=== PATIENT | female | born 1930 | race Caucasian/White ===

== ENCOUNTER 2017-07-18 11:07 | Inpatient (IN) ==
--- NOTE | 2017-07-18 11:34 | Emergency Department Note ---
Disposition Clinical Impression: Hypoxia Acute exacerbation of CHF (congestive heart failure) Qualifiers: Congestive heart failure type: unspecified congestive heart failure type Qualified Code(s): I50.9 - Heart failure, unspecified UTI (urinary tract infection) Qualifiers: Urinary tract infection type: site unspecified Hematuria presence: with hematuria Qualified Code(s): N39.0 - Urinary tract infection, site not specified ; R31.9 - Hematuria, unspecified; R31.9 - Hematuria, unspecified Disposition: Admitted As Inpatient Condition: Fair Time of Disposition: 15:03 SOB HPI - General Chief Complaint: ED Shortness of Breath/Dyspnea Stated Complaint: PROSPER Time Seen by Provider: 07/18/17 11:09 Nursing Notes Reviewed: Yes Vital Signs Reviewed: Yes - History of Present Illness Patient is an 87-year-old female who presents with acute finding of O2 sat of 70 % on room air just before starting cardiac rehabilitation exercises at cardiac rehabilitation. Patient was newly diagnosed CHF 2 months ago and his been having dyspnea on exertion since then. Patient states she is otherwise finding has no symptoms on review of symptoms. Patient denies tobacco use, illicit drug use, and has a occasional alcohol use. - Related Data Home Medications Medication Instructions Recorded Confirmed Aspirin [Lo-Dose Aspirin EC] 81 mg PO DAILY 06/19/17 07/18/17 Atorvastatin Calcium [Lipitor] 40 mg PO HS 06/19/17 07/18/17 Furosemide [Lasix] 40 mg PO DAILY 06/19/17 07/18/17 Glimepiride [Amaryl] 2 mg PO 0800 06/19/17 07/18/17 Methylphenidate HCl [Ritalin] 5 mg PO DAILY 06/19/17 07/18/17 Metoprolol Tartrate [Lopressor] 25 mg PO BID 06/19/17 07/18/17 Multivit-Min/FA/Lycopen/Lutein 1 tab PO DAILY 06/19/17 07/18/17 [Centrum Silver Tablet] SitaGLIPtin [Januvia] 100 mg PO DAILY 06/19/17 07/18/17 Zolpidem [Ambien] 5 mg PO HS PRN 06/19/17 07/18/17 Lactulose [Enulose] 15 - 45 ml PO DAILY 07/18/17 07/18/17 Lisinopril [Zestril] 20 mg PO DAILY 07/18/17 07/18/17 Spironolactone [Aldactone] 25 mg PO DAILY 07/18/17 07/18/17 Allergies Allergy/AdvReac Type Severity Reaction Status Date / Time No Known Allergies Allergy Verified 07/18/17 12:44 All systems ED: reviewed and negative except as stated. Review of Systems: As Per HPI Constitutional: Denies: fever, chills, weakness Eyes: Denies: eye pain, vision change ENT ED: Denies: throat pain, congestion Cardiovascular: Reports: dyspnea on exertion. Denies: chest pain, palpitations , orthopnea, syncope Respiratory: Reports: cough. Denies: dyspnea, wheezes Gastrointestinal: Denies: abdominal pain, nausea, vomiting, diarrhea, hematemesis, melena, hematochezia Genitourinary: Denies: urgency, dysuria, frequency, hematuria Musculoskeletal: Denies: back pain, neck pain Integumentary: Denies: rash Neurological: Denies: headache Psychiatric: Denies: anxiety Endocrine: Denies: fatigue Past Medical History - Past Medical History Medical history: Reports: arthritis, CHF, coronary artery disease, diabetes, hypertension, myocardial infarction, other - Social History Smoking Status: Never smoker Smokeless Tobacco Status: No Alcohol use: Reports: none Physical Exam Vital Signs Temperature 97.5 F L 07/18/17 11:09 Pulse Rate 56 07/18/17 11:09 Respiratory Rate 14 07/18/17 11:09 Blood Pressure 116/72 07/18/17 11:09 O2 Sat by Pulse Oximetry 98 07/18/17 11:09 Temperature 97.5 F L 07/18/17 11:09 Pulse Rate 56 07/18/17 11:09 Respiratory Rate 14 07/18/17 11:09 Blood Pressure 116/72 07/18/17 11:09 O2 Sat by Pulse Oximetry 98 07/18/17 11:09 Oxygen Delivery Oxygen Delivery Nasal Cannula 87-year-old female who is alert and oriented 3 and in no acute distress. Patient able to transfer herself from the EMS cot to her bed without issue. Patient is nontoxic appearing and otherwise looks well patient has no conversational dyspnea. Patient's vital signs show bradycardia at a rate of 56 which is a sinus bradycardia with a first-degree AV block on EKG. Patient's current on 2 L of O2 via nasal cannula with an O2 sat of 98%. - General Limitations: no limitations General appearance: alert, in no apparent distress - Head Head exam: atraumatic, normocephalic, normal inspection - Eye Eye exam: Present: normal appearance, PERRL, EOMI - ENT ENT exam: normal exam, normal oropharynx, mucous membranes moist - Neck Neck exam: Present: normal inspection, full ROM, trachea midline - Chest Chest inspection: Present: normal inspection, symmetric chest wall rise. Absent : tenderness - Respiratory Respiratory exam: Present: normal lung sounds bilaterally - Cardiovascular Cardiovascular exam: Present: regular rate, normal rhythm, normal heart sounds - Abdominal Exam Abdominal exam: Present: soft, Non-Tender. Absent: tenderness, distention, guarding, rebound, rigidity - Extremities Exam Extremities exam: Present: normal inspection, full ROM, normal capillary refill , other (Pulses equal or neural 4 extremities). Absent: tenderness, pedal edema - Back Exam Back exam: Present: normal inspection, full ROM. Absent: tenderness, CVA tenderness (R), CVA tenderness (L) - Neurological Exam Neurological exam: Present: alert, oriented X3 - Skin Skin exam: Present: warm, dry, intact, normal color Course Vital Signs Temperature 97.5 F L 07/18/17 11:09 Pulse Rate 56 07/18/17 11:09 Respiratory Rate 14 07/18/17 11:09 Blood Pressure 116/72 07/18/17 11:09 O2 Sat by Pulse Oximetry 98 07/18/17 11:09 Temperature 97.5 F L 07/18/17 11:35 Pulse Rate 63 07/18/17 13:38 Respiratory Rate 20 07/18/17 14:38 Blood Pressure 124/60 07/18/17 14:38 O2 Sat by Pulse Oximetry 100 07/18/17 13:38 Oxygen Delivery Oxygen Delivery Nasal Cannula Shortness of Breath/Dyspnea - [facility] Narrative Medical decision making narrative: Patient presents with symptoms consistent with acute CHF exacerbation. Patient currently has no chest pain and EKG shows first-degree AV block which is seen on previous EKG as well as a sinus bradycardia seen on the old EKG as well. Patient's O2 sat was concerning for possible PE and d-dimer was ordered. Which returned at 1500. Patient sent for VQ scan since her GFR and BUN/creatinine problematic for contrast. Patient's BNP came back elevated then prior with chest x-ray showing mild vascular congestion for CHF exacerbation. VQ scan read as states low probability of PE. Patient being admitted for CHF exacerbation has been given a dose of Lasix 40 mg IV since patient she is noncompliant on her home medications which may be expiratory for patient's CHF exacerbation. On reexamination patient still doing well no pain anywhere. Dr. Palomares the hospitalist as except the patient for admission at 1417 hrs. Patient's UA shows UTI. Patient's urinalysis results crossed over after admission and has not been started on therapy for her UTI. - Lab Data Lab results reviewed: Yes I reviewed the patient's lab results. Lab results narrative: Short CBC 07/18/17 Range/Units 11:50 WBC 6.8 (4.3-11.1) K/mcL Hgb 12.0 (11.5-15.4) g/dL Hct 39.3 (35.3-44.9) % Plt Count 134 L (140-400) K/mcL Neutrophils # 5.3 (1.6-8.9) K/mcL BMP 07/18/17 Range/Units 11:50 Sodium 139 (136-145) mEq/L Potassium 4.7 H (3.5-4.5) mEq/L Chloride 108 (98-109) mEq/L Carbon Dioxide 25 (19-29) mEq/L BUN 44 H (7-20) mg/dL Creatinine 1.53 H (0.57-1.11) mg/dL Glucose 194 H (70-99) mg/dL Calcium 9.2 (8.6-10.8) mg/dL Cardiac Enzymes 07/18/17 Range/Units 11:50 Troponin I 0.03 (0-0.03) ng/mL Urine 07/18/17 Range/Units 14:15 Urine Color Yellow (Yellow) Urine Clarity Slightly Cloudy A (Clear) Urine pH 6.0 (5.0-8.0) pH Units Ur Specific [place] 1.022 (1.010-1.025) Urine Protein 30 H (Neg-Trace) mg/dL Urine Glucose (UA) Normal (Normal) mg/dL Result diagrams: 07/18/17 11:50 07/18/17 11:50 Lab Results 07/18/17 07/18/17 07/18/17 Range/Units 11:50 11:50 11:50 WBC 6.8 (4.3-11.1) K/mcL RBC 4.39 (3.82-4.97) M/mcL Hgb 12.0 (11.5-15.4) g/dL Hct 39.3 (35.3-44.9) % MCV 89.5 (83.0-100.0) fL MCH 27.3 L (28.0-33.3) pg MCHC 30.5 L (31.6-35.5) g/dL RDW 18.0 H (11.5-14.5) % Plt Count 134 L (140-400) K/mcL MPV 12.4 (9.4-12.4) fL Immature Gran % 0.3 (0-4) % Seg Neutrophils % 77.8 % Lymphocytes % 11.2 % Monocytes % 9.1 % Eosinophils % 1.2 % Basophils % 0.4 % Neutrophils # 5.3 (1.6-8.9) K/mcL Lymphocytes # 0.8 (0.6-4.6) K/mcL Monocytes # 0.6 (0.0-1.3) K/mcL Eosinophils # 0.1 (0.0-0.6) K/mcL Basophils # 0.0 (0.0-0.2) K/mcL D-Dimer (0-500) ng/mLFEU Sodium 139 (136-145) mEq/L Potassium 4.7 H (3.5-4.5) mEq/L Chloride 108 (98-109) mEq/L Carbon Dioxide 25 (19-29) mEq/L BUN 44 H (7-20) mg/dL Creatinine 1.53 H (0.57-1.11) mg/dL Est GFR ( Amer) 39 L (> 60) Est GFR (Non-Af Amer) 32 L (> 60) BUN/Creatinine Ratio 29 H (6-26) Glucose 194 H (70-99) mg/dL Calculated Osmolality 304 H (280-300) Calcium 9.2 (8.6-10.8) mg/dL Troponin I 0.03 (0-0.03) ng/mL B-Natriuretic Peptide (0-100) pg/mL Urine Color (Yellow) Urine Clarity (Clear) Urine pH (5.0-8.0) pH Units Ur Specific [place] (1.010-1.025) Urine Protein (Neg-Trace) mg/dL Urine Glucose (UA) (Normal) mg/dL Urine Ketones (Negative) mg/dL Urine Blood (Negative) Urine Nitrite (Negative) Urine Bilirubin (Negative) Urine Urobilinogen (Normal) mg/dL Ur Leukocyte Esterase (Negative) Urine Microscopic RBC (0-3) per hpf Urine Microscopic WBC (0-3) per hpf Ur Squamous Epith Cells (None-Few) per lpf Urine Bacteria (None-Few) per hpf Hyaline Casts (None-Few) per lpf Ur Culture Indicated? (NO) 07/18/17 07/18/17 07/18/17 Range/Units 11:50 11:53 14:15 WBC (4.3-11.1) K/mcL RBC (3.82-4.97) M/mcL Hgb (11.5-15.4) g/dL Hct (35.3-44.9) % MCV (83.0-100.0) fL MCH (28.0-33.3) pg MCHC (31.6-35.5) g/dL RDW (11.5-14.5) % Plt Count (140-400) K/mcL MPV (9.4-12.4) fL Immature Gran % (0-4) % Seg Neutrophils % % Lymphocytes % % Monocytes % % Eosinophils % % Basophils % % Neutrophils # (1.6-8.9) K/mcL Lymphocytes # (0.6-4.6) K/mcL Monocytes # (0.0-1.3) K/mcL Eosinophils # (0.0-0.6) K/mcL Basophils # (0.0-0.2) K/mcL D-Dimer 1593 H (0-500) ng/mLFEU Sodium (136-145) mEq/L Potassium (3.5-4.5) mEq/L Chloride (98-109) mEq/L Carbon Dioxide (19-29) mEq/L BUN (7-20) mg/dL Creatinine (0.57-1.11) mg/dL Est GFR ( Amer) (> 60) Est GFR (Non-Af Amer) (> 60) BUN/Creatinine Ratio (6-26) Glucose (70-99) mg/dL Calculated Osmolality (280-300) Calcium (8.6-10.8) mg/dL Troponin I (0-0.03) ng/mL B-Natriuretic Peptide 4725 H (0-100) pg/mL Urine Color Yellow (Yellow) Urine Clarity Slightly Cloudy A (Clear) Urine pH 6.0 (5.0-8.0) pH Units Ur Specific [place] 1.022 (1.010-1.025) Urine Protein 30 H (Neg-Trace) mg/dL Urine Glucose (UA) Normal (Normal) mg/dL Urine Ketones Negative (Negative) mg/dL Urine Blood Negative (Negative) Urine Nitrite Positive A (Negative) Urine Bilirubin Negative (Negative) Urine Urobilinogen Normal (Normal) mg/dL Ur Leukocyte Esterase Negative (Negative) Urine Microscopic RBC 0-3 (0-3) per hpf Urine Microscopic WBC 3-5 H (0-3) per hpf Ur Squamous Epith Cells Many H (None-Few) per lpf Urine Bacteria Moderate H (None-Few) per hpf Hyaline Casts None Seen (None-Few) per lpf Ur Culture Indicated? YES A (NO) - Radiology Data Radiology results reviewed: Yes I reviewed the patient's radiology results. Chest X-Ray 07/18/17 11:29 IMPRESSION: Findings most compatible with mild congestive heart failure. D/ / Haroon Sands MD / Haroon Sands MD Interpreting Provider: Haroon Sands MD Pulmonary Perfusion Imaging 07/18/17 12:19 IMPRESSION: Low Probability for Pulmonary Embolus. D/ / Broderick Pearce MD / Broderick Pearce MD Interpreting Provider: Broderick Pearce MD - EKG Data EKG attestation: Yes I reviewed and interpreted this EKG. EKG results narrative: EKG taken 07/18/2017 1127 hrs. shows a sinus bradycardia first-degree AV block E on previous EKG taken 07/15/2011. Patient has no signs ischemia and no WPW no Brugada. Attestation Statement - Attestation Attestation: I, Ap Sr DO, examined this patient [id number] and my medical decision-making was reviewed with Dr. Guy Ortega, Resident Physician. I agree with the documented findings, disposition and treatment plan as described except to the extent set forth below. Please see my progress notes for details. 87-year-old female presents emergency room from cardiac rehabilitation by EMS. Patient was found to be hypoxic at 70% on room air when she arrived to cardiac rehabilitation today. She is currently followed by or nurse manager in [place]. Patient has been in all the hospital at that facility and has had several evaluations outpatient setting. She started on new medication within the last 2 weeks. Her vital signs and presentation are stable here and 2 L of oxygen. She does not use oxygen at home. Her physical exam shows a 87-year- old female who does appear to be in some mild respiratory distress. She does have some increased work of breathing. Her lungs are clear but she is using accessory muscles. Heart is regular and bradycardic. Abdomen soft nontender nondistended with no guarding or rigidity. She has +2 pitting edema to the knee bilateral lower extremity with palpable pulses in the DP and PT distributions that are symmetric bilaterally. There is no signs of discoloration to lower extremities. Upper extremities does have some cyanosis to the distal aspect of all the fingers on the upper extremities. The symmetric bilaterally. This is most likely secondary to her new onset hypoxia. Patient will have detailed workup completed including chest x-ray. D-dimer will be added on at this time a possibility CT angiography. Patient will most likely be admission to hospital. Clinically Lasix will be provided when Chemstrip panel is not resulted. Patient is otherwise resting comfortably in the bed. Family is at the bedside on my evaluation the daughter is concerned because she does live at home by herself requested social group worker to go to the room to see if there is any outpatient services that are available for mother. Social work was contacted at this time. See detailed documentation of physical exam, medical intervention, medical decision-making disposition resident physician's note 1315 Patient is significantly elevated BNP. Patient will have VQ scan completed secondary to kidney function. Patient's urine is still pending. Chest x-ray evaluating today. Patient will be admitted for definitive management. No critical care provider this patient this time
[2017-07-18 11:59] LABS: Basophils % 0.4 %; Eosinophils # 0.1 K/mcL (0.0-0.6); Eosinophils % 1.2 %; Hematocrit 39.3 % (35.3-44.9); Immature Granulocytes % 0.3 % (0-4); Lymphocytes # 0.8 K/mcL (0.6-4.6); Lymphocytes % 11.2 %; Mean Corpuscular HGB Conc 30.5 g/dL (31.6-35.5); Mean Corpuscular Hemoglobin 27.3 pg (28.0-33.3); Mean Corpuscular Volume 89.5 fL (83.0-100.0); Mean Platelet Volume 12.4 fL (9.4-12.4); Monocytes # 0.6 K/mcL (0.0-1.3); Monocytes % 9.1 %; Neutrophils # 5.3 K/mcL (1.6-8.9); Platelet Count 134 K/mcL (140-400); Red Blood Count 4.39 M/mcL (3.82-4.97); Segmented Neutrophils % 77.8 %
[2017-07-18 12:13] LABS: Calcium 9.2 mg/dL (8.6-10.8); Potassium 4.7 mEq/L (3.5-4.5)
[2017-07-18] MEDS ORDERED: Furosemide 40 MG/4 ML VIAL IVP ONE (13:11)
[2017-07-18 14:27] LABS: Bilirubin,Urine Negative (Negative); Blood,Urine Negative (Negative); Color,Urine Yellow (Yellow); Glucose,Urine (UA) Normal (Normal); Ketones,Urine Negative (Negative); Leukocyte Esterase,Urine Negative (Negative); Nitrite,Urine Positive (Negative); Protein,Urine 30 mg/dL (Neg-Trace); Specific Gravity,Urine 1.022 (1.010-1.025); Urobilinogen,Urine Normal (Normal)
[2017-07-18 14:30] LABS: Bacteria,Urine Moderate per hpf (None-Few); Hyaline Casts,Urine None Seen per lpf (None-Few); Squamous Epithelial Cell,Urine Many per lpf (None-Few)
[2017-07-18 14:31] LABS: Clarity,Urine Slightly Cloudy (Clear)
[2017-07-18 14:39] LABS: RBC,Urine 0-3 per hpf (0-3)
[2017-07-18] MEDS ORDERED: Naloxone 0.4 MG/ML INJ IVP PRN (15:57)
[2017-07-18] MEDS ORDERED: Lactulose Oral Soln 20 GM/30 ML UDC PO PRN (15:58)
--- NOTE | 2017-07-18 16:26 | Internal Med History&Physical ---
Date of Encounter: 07/18/17 Time of Encounter: 16:15 Assessment and Plan (1) Acute exacerbation of CHF (congestive heart failure) Current visit: Yes Status: Acute Secondary to noncompliance with low sodium diet and not taking lasix. No history of LHC, but patient reports PCP feels her CHF is secondary to ischemic disease. - IV lasix 40mg IV BID - Continue home Entresto and spironolactone - Monitor on telemetry - Monitor electrolytes Qualifiers: Congestive heart failure type: systolic Qualified Code(s): I50.23 - Acute on chronic systolic (congestive) heart failure (2) Diabetes Current visit: Yes Status: Acute Hold PO medications - SSI while admitted Qualifiers: Diabetes mellitus type: type 2 Diabetes mellitus complication status: without complication Diabetes mellitus longterm insulin use: without longterm use Qualified Code(s): E11.9 - Type 2 diabetes mellitus without complications (3) Hypoxia Current visit: Yes Status: Acute Secondary to CHF exacerbation. VQ scan low probability for PE. - Treat CHF exacerbation as above (4) Bacteriuria Current visit: Yes Status: Acute UA/micro with 3-5 WBCs, many bacteria, many epithelial cells. Patient denies urinary symptoms. - Repeat UA/micro, will not treat for UTI at this point Internal Medicine - H&P: HPI Chief complaint: Hypoxia Admitted From: Emergency Dept Plans for Post Hospital Care: Home History of present illness: Ms. López is a 87 year old female with history of CHF (EF 20%) who presented to ED this morning from cardiac rehab after she was found to be hypoxic. She notes that she has been more short of breath for the past week with ambulation and noticed that her fingers were bluish in color the past two days. She admits to eating larger amount of salt over the past week (Thanksgiving) and only rarely takes her lasix because she does not like having to urinate so frequently. She has noticed that her weight has increased 3-4 pounds over the past week. Denies orthopnea but has noticed it is harder to bend over and tie her shoes. She denies chest pain, fever/chills, nausea, vomiting or diarrhea. She has chronic issues with constipation but notes that this is likely because she consumes large amounts of iron in order to be able to donate blood frequently - she has donated 22 gallons of blood and has a lifetime goal of donating 25 gallons because her son from [place] anemia. She denies dysuria or frequency. Past Med Surg Social Fam HX - Past Medical History Medical history: arthritis, CHF, coronary artery disease, diabetes, hypertension , myocardial infarction, other Psychiatric history: no psych history - Social History Smoking Status: Never smoker Smokeless Tobacco Status: No Alcohol use: none Drug use: none - Family History Brother Adopted: No Family Member Ethnicity: Non- Living Status: Still Living Hx Family Cardiac Disorders: Yes (pacer) Hx Family Respiratory Disorders: No Hx Family Cancer: No Hx Family GI Disorders: No Hx Family Endocrine Disorder: No Hx Family Neuromuscular Disorders: No Hx Family Neurologic Disorders: No Hx Family HEENT Disorders: Yes (glasses) Hx Family Autoimmune Disorders: No Internal Medicine - H&P: Meds Aspirin [Lo-Dose Aspirin EC] 81 mg PO DAILY 06/19/17 [History] Atorvastatin Calcium [Lipitor] 40 mg PO HS 06/19/17 [History] Furosemide [Lasix] 40 mg PO DAILY 06/19/17 [History] Glimepiride [Amaryl] 2 mg PO 0800 06/19/17 [History] Methylphenidate HCl [Ritalin] 5 mg PO DAILY 06/19/17 [History] Metoprolol Tartrate [Lopressor] 25 mg PO BID 06/19/17 [History] Multivit-Min/FA/Lycopen/Lutein [Centrum Silver Tablet] 1 tab PO DAILY 06/19/17 [ History] SitaGLIPtin [Januvia] 100 mg PO DAILY 06/19/17 [History] Zolpidem [Ambien] 5 mg PO HS PRN 06/19/17 [History] Lactulose [Enulose] 15 - 45 ml PO DAILY 07/18/17 [History] Lisinopril [Zestril] 20 mg PO DAILY 07/18/17 [History] Spironolactone [Aldactone] 25 mg PO DAILY 07/18/17 [History] 3 Allergy/AdvReac Type Severity Reaction Status Date / Time No Known Allergies Allergy Verified 07/18/17 12:44 All Systems PM: A 10-system review of systems was performed and is negative for pertinent findings except as documented above in the HPI. - Constitutional Vitals: Temp Pulse Resp BP Pulse Ox 97.3 F L 75 18 109/69 97 07/18/17 15:30 07/18/17 15:30 07/18/17 15:30 07/18/17 15:30 07/18/17 15:30 General appearance: Present: A&O X 3, no acute distress - Head Head exam: Present: atraumatic - Eye Eye exam: Present: EOMI, sclera anicteric - ENT ENT exam: Present: mucous membranes moist - Neck Neck exam general surgery: Present: supple - Respiratory Additional comments: crackles in bilateral bases - Cardiovascular Cardiovascular exam: Present: RRR. Absent: diastolic murmur, gallop, rubs, systolic murmur - GI/Abdominal GI/Abdominal exam: Present: normal bowel sounds, soft. Absent: distended, tenderness - Extremities Exam Extremities exam: Present: pedal edema Additional comments: 1-2 + edema in bilateral lower extremities - Neurological Exam Neurological exam: Present: no focal deficits - Skin Skin exam: Absent: rash Internal Med - H&P Results - Labs CBC & Chem 7: 07/18/17 11:50 07/18/17 11:50
[2017-07-18] MEDS ORDERED: *HR* Dextrose 50 % in Water (Syg) 50 ML SYRINGE IVP PRN (17:05)
[2017-07-18] MEDS ORDERED: Dextrose Gel 15 GM PO PRN ×2 (17:05)
[2017-07-18] MEDS ORDERED: D5% in Water 1,000 ML IVC PRN (17:05)
[2017-07-18] MEDS: Insulin LISPRO 300 UNITS/3 ML VIAL SQ SCH (21:28)
[2017-07-18] MEDS: Furosemide 40 MG/4 ML VIAL IVP SCH (21:38)
[2017-07-18] MEDS: SACUBITRIL/VALSARTAN 24/26 MG TABLET PO SCH (21:38)
[2017-07-18 22:17] LABS: Bilirubin,Urine Negative (Negative); Blood,Urine Negative (Negative); Clarity,Urine Clear (Clear); Color,Urine Yellow (Yellow); Glucose,Urine (UA) Normal (Normal); Ketones,Urine Negative (Negative); Leukocyte Esterase,Urine Negative (Negative); Nitrite,Urine Positive (Negative); PH,Urine 5.5 pH Units (5.0-8.0); Protein,Urine Negative (Neg-Trace); Specific Gravity,Urine 1.015 (1.010-1.025); Urobilinogen,Urine Normal (Normal)
[2017-07-18 22:21] LABS: Bacteria,Urine Many per hpf (None-Few); Hyaline Casts,Urine None Seen per lpf (None-Few); RBC,Urine 0-3 per hpf (0-3); Squamous Epithelial Cell,Urine Moderate per lpf (None-Few); WBC,Urine 0-3 per hpf (0-3)
[2017-07-19 05:18] LABS: Basophils % 0.6 %; Eosinophils # 0.1 K/mcL (0.0-0.6); Eosinophils % 2.6 %; Hematocrit 36.1 % (35.3-44.9); Immature Granulocytes % 0.2 % (0-4); Mean Corpuscular HGB Conc 30.5 g/dL (31.6-35.5); Mean Corpuscular Hemoglobin 27.5 pg (28.0-33.3); Mean Corpuscular Volume 90.3 fL (83.0-100.0); Monocytes # 0.7 K/mcL (0.0-1.3); Monocytes % 14.7 %; Neutrophils # 3.2 K/mcL (1.6-8.9); Platelet Count 114 K/mcL (140-400); Segmented Neutrophils % 62.9 %
[2017-07-19 05:38] LABS: Calcium 8.6 mg/dL (8.6-10.8); Potassium 4.3 mEq/L (3.5-4.5)
[2017-07-19] MEDS: Insulin LISPRO 300 UNITS/3 ML VIAL SQ SCH ×4 (08:07→21:44)
[2017-07-19] MEDS: Aspirin Enteric Coated 81 MG Tablet PO SCH (08:59)
[2017-07-19] MEDS: Furosemide 40 MG/4 ML VIAL IVP SCH (08:59)
[2017-07-19] MEDS: Spironolactone 25 MG TABLET PO SCH (08:59)
[2017-07-19] MEDS: SACUBITRIL/VALSARTAN 24/26 MG TABLET PO SCH ×2 (08:59→21:35)
[2017-07-19] MEDS: Methylphenidate HCl 5 MG TABLET PO SCH (08:59)
[2017-07-19] MEDS: Multivit/Ca/Min/Fe/FA 1 TAB TABLET PO SCH (08:59)
[2017-07-19] MEDS ORDERED: Lisinopril 20 MG TABLET PO SCH (09:00)
--- NOTE | 2017-07-19 10:35 | Internal Med Progress Note ---
Date of Encounter: 07/19/17 Time of Encounter: 08:35 - Assessment and plan (1) Acute exacerbation of CHF (congestive heart failure) Current Visit: Yes Status: Acute Assessment and plan: Patient is improving clinically, she presented with hypoxia with associated elevated BNP to 4725. She is currently ambulating tree in the form of respiratory distress. She still has ankle edema. Decrease Lasix to 40 mg IV daily Continue daily weights, continue strict intake and output. Qualifiers: Congestive heart failure type: systolic Qualified Code(s): I50.23 - Acute on chronic systolic (congestive) heart failure (2) Chronic kidney disease (CKD) stage G3a/A3, moderately decreased glomerular filtration rate (GFR) between 45-59 mL/min/1.73 square meter and albuminuria creatinine ratio greater than 300 mg/g Current Visit: Yes Status: Suspected Assessment and plan: Suspected, follow further renal imaging results. No indication for nephrology consult at this time. (3) Hypoxia Current Visit: Yes Status: Resolved Assessment and plan: Resolved 2 secondary to pulmonary edema from acute on chronic CHF exacerbation. (4) Diabetes Current Visit: Yes Status: Chronic Assessment and plan: Fingersticks acceptable for now. She had one episode of hypoglycemia in the early hours of today. Continue sliding scale only. Qualifiers: Diabetes mellitus type: type 2 Diabetes mellitus complication status: without complication Diabetes mellitus intermediate project manager insulin use: without chcf use Qualified Code(s): E11.9 - Type 2 diabetes mellitus without complications (5) Bacteriuria Current Visit: Yes Status: Acute Assessment and plan: Final urinary culture. There is no current indication for antibiotics. - Subjective Interval history: Patient is seen and evaluated at the bedside. She is fully dressed, denies new complaints, and is asking to be discharged home. Of note, her renal function has been abnormal since April 2017. With a slight worsening in this admission. Her hypoxia has resolved. We will obtain a retroperitoneal ultrasound scan to assess the size and morphology of the kidneys. - Constitutional Vitals: Temp Pulse Resp BP Pulse Ox 97.4 F L 59 20 120/71 97 07/19/17 08:06 07/19/17 08:06 07/19/17 08:06 07/19/17 08:06 07/19/17 08:06 General appearance: Present: A&O X 3, pleasant, no acute distress - Head Head exam: Present: atraumatic, normocephalic - Eye Eye exam: Present: PERRL, conjuntiva pink, sclera anicteric Pupils: Present: PERRL - Neck Neck exam general surgery: Present: supple, trachea midline. Absent: lymphadenopathy - Respiratory Respiratory exam: Present: CTAB. Absent: accessory muscle use, rales, rhonchi, wheezes - Cardiovascular Cardiovascular exam: Present: RRR, +S1, +S2. Absent: diastolic murmur, gallop, rubs, systolic murmur - GI/Abdominal GI/Abdominal exam: Present: normal bowel sounds, soft, no peritoneal signs. Absent: distended, tenderness - Extremities Exam Extremities exam: Present: pedal edema (trace ankle edema bilaterally), warm, radial pulses palpable and symmetrical. Absent: calf tenderness, cyanotic - Neurological Exam Neurological exam: Present: alert, CN II-XII intact, oriented X3, no focal deficits. Absent: pronater drift, facial droop, speech deficit - Skin Skin exam: Present: dry, intact Internal Medicine: Result - Labs CBC & Chem 7: 07/19/17 04:32 07/19/17 04:32 Labs: Short CBC 07/19/17 Range/Units 04:32 WBC 5.0 (4.3-11.1) K/mcL Hgb 11.0 L (11.5-15.4) g/dL Hct 36.1 (35.3-44.9) % Plt Count 114 L (140-400) K/mcL Neutrophils # 3.2 (1.6-8.9) K/mcL BMP 07/19/17 04:32 Sodium 141 Potassium 4.3 Chloride 109 Carbon Dioxide 23 BUN 44 H Creatinine 1.53 H Glucose 52 L Calcium 8.6 Cardiac Enzymes 07/18/17 07/18/17 07/19/17 Range/Units 16:13 21:33 04:32 Troponin I 0.02 0.03 0.03 (0-0.03) ng/mL Urine 07/18/17 Range/Units 21:56 Urine Color Yellow (Yellow) Urine Clarity Clear (Clear) Urine pH 5.5 (5.0-8.0) pH Units Ur Specific [place] 1.015 (1.010-1.025) Urine Protein Negative (Neg-Trace) mg/dL Urine Glucose (UA) Normal (Normal) mg/dL - ABG Interpretation ABG results: PT/INR, D-dimer D-Dimer 1593 ng/mLFEU (0-500) H 07/18/17 11:53 Consult Discharge Plan - Plan Referrals: Carla Julian MD [Primary Care Provider] -
--- NOTE | 2017-07-19 16:04 | Event Note ---
Date of Encounter: 07/19/17 Time of Encounter: 16:01 Renal USS showed L renal mass suspisious for neoplasm Abd CT without contrast shows same MRI is recommended I consulted and spoke with Urologist Dr. Galan, who will see and evaluate patient tomorrow Patient will need IR guided biopsy, vs biopsy per urologist, will await recommendations I met with patient and her daughter Ciarra at the bedside, and discussed the finding with them, both verbalized understanding All questions answered.
[2017-07-20 05:31] LABS: Basophils % 0.5 %; Eosinophils # 0.1 K/mcL (0.0-0.6); Eosinophils % 1.7 %; Hematocrit 36.4 % (35.3-44.9); Hemoglobin 11.4 g/dL (11.5-15.4); Immature Granulocytes % 0.3 % (0-4); Lymphocytes # 0.9 K/mcL (0.6-4.6); Lymphocytes % 14.1 %; Mean Corpuscular HGB Conc 31.3 g/dL (31.6-35.5); Mean Corpuscular Hemoglobin 27.7 pg (28.0-33.3); Mean Corpuscular Volume 88.6 fL (83.0-100.0); Mean Platelet Volume 12.3 fL (9.4-12.4); Monocytes # 0.8 K/mcL (0.0-1.3); Monocytes % 13.3 %; Neutrophils # 4.4 K/mcL (1.6-8.9); Platelet Count 122 K/mcL (140-400); Red Blood Count 4.11 M/mcL (3.82-4.97); Red Cell Distribution Width 18.3 % (11.5-14.5); Segmented Neutrophils % 70.1 %
[2017-07-20 05:49] LABS: Calcium 8.7 mg/dL (8.6-10.8); Potassium 4.1 mEq/L (3.5-4.5)
--- NOTE | 2017-07-20 07:25 | Internal Med Progress Note ---
Date of Encounter: 07/20/17 Time of Encounter: 08:58 - Assessment and plan (1) Acute exacerbation of CHF (congestive heart failure) Current Visit: Yes Status: Acute Assessment and plan: Patient is improving clinically, she presented with hypoxia with associated elevated BNP to 4725. She is currently ambulating and in no form of respiratory distress. Patient noted to have sinus bradycardia Decrease metoprolol to 12.5 mg bid, hold this morning's dose changed lasix to 20mg po Qualifiers: Congestive heart failure type: systolic Qualified Code(s): I50.23 - Acute on chronic systolic (congestive) heart failure (2) Chronic kidney disease (CKD) stage G3a/A3, moderately decreased glomerular filtration rate (GFR) between 45-59 mL/min/1.73 square meter and albuminuria creatinine ratio greater than 300 mg/g Current Visit: Yes Status: Suspected Assessment and plan: Suspected, renal USS with no obstructibe uropathy L renal mass Cr is slighlty elevated this morning Decrease lasix, avoid nephrotoxins Having adequate urine output (3) Hypoxia Current Visit: Yes Status: Resolved Assessment and plan: Resolved secondary to pulmonary edema from acute on chronic CHF exacerbation. (4) Diabetes Current Visit: Yes Status: Chronic Assessment and plan: Diet controlled at home Fingersticks acceptable for now. She had one episode of hypoglycemia in the early hours of today. Continue sliding scale only. Qualifiers: Diabetes mellitus type: type 2 Diabetes mellitus complication status: without complication Diabetes mellitus long term care phlebotomist insulin use: without long term care phlebotomist use Qualified Code(s): E11.9 - Type 2 diabetes mellitus without complications (5) UTI (urinary tract infection) Current Visit: Yes Status: Acute Assessment and plan: ESBL E.coli, resistent to cephalosporins, sensitive to cipro/levo/unasyn/ augmentin Started on Unasyn-Day 1 Qualifiers: Urinary tract infection type: site unspecified Hematuria presence: with hematuria Qualified Code(s): N39.0 - Urinary tract infection, site not specified; R31.9 - Hematuria, unspecified; R31.9 - Hematuria, unspecified (6) Renal mass Current Visit: Yes Status: Acute Assessment and plan: Icidental finding of L renal mass by USS and CT Urology consulted for recommendations regarding biopsy - Subjective Interval history: Patient is seen and evaluated at the bedside. she was admitted for acute exacerbation of CHFrEF Incidental finding of renal mass and CKD vs TERRY on CKD She is also growing ESBL E.coli in her urine Awaiting Urology eval No new complains this morning - Constitutional Vitals: Temp Pulse Resp BP Pulse Ox 98.2 F 65 17 106/67 93 07/20/17 00:30 07/20/17 00:30 07/20/17 00:30 07/20/17 00:30 07/20/17 00:30 General appearance: Present: A&O X 3, pleasant, no acute distress - Head Head exam: Present: atraumatic, normocephalic - Eye Eye exam: Present: PERRL, conjuntiva pink, sclera anicteric Pupils: Present: PERRL - Neck Neck exam general surgery: Present: supple, trachea midline. Absent: lymphadenopathy - Respiratory Respiratory exam: Present: CTAB. Absent: accessory muscle use, rales, rhonchi, wheezes - Cardiovascular Cardiovascular exam: Present: RRR, +S1, +S2. Absent: diastolic murmur, gallop, rubs, systolic murmur - GI/Abdominal GI/Abdominal exam: Present: normal bowel sounds, soft, no peritoneal signs. Absent: distended, tenderness - Extremities Exam Extremities exam: Present: cyanotic (cyanotic finger tips), warm, radial pulses palpable and symmetrical. Absent: calf tenderness, pedal edema - Neurological Exam Neurological exam: Present: alert, CN II-XII intact, oriented X3, no focal deficits. Absent: pronater drift, facial droop, speech deficit - Skin Skin exam: Present: dry, intact Internal Medicine: Result - Labs CBC & Chem 7: 07/20/17 05:19 07/20/17 05:19 Labs: Short CBC 07/20/17 Range/Units 05:19 WBC 6.3 (4.3-11.1) K/mcL Hgb 11.4 L (11.5-15.4) g/dL Hct 36.4 (35.3-44.9) % Plt Count 122 L (140-400) K/mcL Neutrophils # 4.4 (1.6-8.9) K/mcL BMP 07/20/17 05:19 Sodium 141 Potassium 4.1 Chloride 106 Carbon Dioxide 28 BUN 47 H Creatinine 1.57 H Glucose 111 H Calcium 8.7 - ABG Interpretation ABG results: PT/INR, D-dimer D-Dimer 1593 ng/mLFEU (0-500) H 07/18/17 11:53 - Impressions Impressions Retroperitoneum Ultrasound 07/19/17 11:00 IMPRESSION: Solid-appearing 4.0 x 3.9 x 3.7 cm mass arising from the left kidney. Findings concerning for neoplasm. Recommend dedicated CT or MRI of the kidneys with contrast. D/ / Meghna Garcia MD / Meghna Garcia MD Interpreting Provider: Meghna Garcia MD Abdomen CT 07/19/17 12:27 IMPRESSION: 3.8 cm left renal lesion which measures higher than fluid density, though is incompletely evaluated on single phase. This is favored to represent neoplasm given appearance on prior ultrasound. If the patient is unable to receive contrast, consider renal protocol MRI without contrast to assess for cystic versus solid components. D/ / Chaz Martin MD / Chaz Martin MD Interpreting Provider: Chaz Martin MD - VTE Documentation of Mechanical Device: Graduated compression elastic hosiery Consult Discharge Plan - Plan Referrals: Carla Julian MD [Primary Care Provider] -
[2017-07-20] MEDS: Insulin LISPRO 300 UNITS/3 ML VIAL SQ SCH ×4 (08:41→21:22)
[2017-07-20] MEDS ORDERED: Furosemide 40 MG/4 ML VIAL IVP SCH (09:00)
[2017-07-20] MEDS ORDERED: cefTRIAXone 1,000 MG in Water for inj. (sterile) 10 ML IVP SCH (09:00)
[2017-07-20] MEDS: Furosemide 20 MG TABLET PO SCH (09:49)
[2017-07-20] MEDS: Aspirin Enteric Coated 81 MG Tablet PO SCH (09:49)
[2017-07-20] MEDS: Spironolactone 25 MG TABLET PO SCH (09:49)
[2017-07-20] MEDS: Methylphenidate HCl 5 MG TABLET PO SCH (09:49)
[2017-07-20] MEDS: Multivit/Ca/Min/Fe/FA 1 TAB TABLET PO SCH (09:49)
[2017-07-20] MEDS: SACUBITRIL/VALSARTAN 24/26 MG TABLET PO SCH ×2 (09:50→21:18)
[2017-07-20] MEDS: Ampicillin/Sulbactam 1,500 MG in 0.9 % Sodium Chloride Mini Bag 100 ML IVPB SCH ×2 (09:50→12:21)
--- NOTE | 2017-07-20 11:00 | Urology - Consult Note ---
Date of Encounter: 07/20/17 Time of Encounter: 10:58 - Assessment and Plan (1) Renal mass Current Visit: Yes Status: Acute Assessment and plan: 87-year-old woman with a left renal mass. This was seen on a noncontrast enhanced CT scan. I would recommend proceeding with an MRI of the abdomen without and with gadolinium to further evaluate. I discussed options with her. We reviewed the [facility] small renal mass guidelines. I discussed observation, ablation, partial nephrectomy, and radical nephrectomy. We reviewed the risks and benefits of all approaches. She does have CHF and renal insufficiency. I would like to see what the MRI shows to further provide her counseling. Partial nephrectomy may be preferable if she elects for treatment given her renal insufficiency, but she does have cardiac issues and this could be difficult for her from a cardiac standpoint if there is significant bleeding during the partial nephrectomy. I answered all of her questions. She will return in the office for further discussion. (2) UTI (urinary tract infection) Current Visit: Yes Status: Acute Assessment and plan: Continue Unasyn for the Escherichia coli urinary tract infection. Qualifiers: Urinary tract infection type: site unspecified Hematuria presence: with hematuria Qualified Code(s): N39.0 - Urinary tract infection, site not specified; R31.9 - Hematuria, unspecified; R31.9 - Hematuria, unspecified Urology CN:HPI Consult date: 07/20/17 History of present illness: 87-year-old woman was admitted for a CHF exacerbation. During her workup she had a ultrasound of the abdomen obtained. This showed a mass within the left kidney. She had a follow-up CT scan without contrast which showed a lesion in the lower pole left kidney, "3.8 by 3.7 cm mass, corresponding to lesion visualized on prior ultrasound." She denies any flank pain or hematuria. She was diagnosed with a urinary tract infection and has an extended spectrum beta lactamase Escherichia coli. She is currently on Unasyn which is appropriate based upon her culture. Past Med Surg Social Fam HX - Past Medical History Medical history: arthritis, CHF, coronary artery disease, diabetes, hypertension , myocardial infarction, other Psychiatric history: no psych history - Social History Smoking Status: Never smoker Smokeless Tobacco Status: No Alcohol use: none Drug use: none - Family History Brother Adopted: No Family Member Ethnicity: Non- Living Status: Still Living Hx Family Cardiac Disorders: Yes (pacer) Hx Family Respiratory Disorders: No Hx Family Cancer: No Hx Family GI Disorders: No Hx Family Endocrine Disorder: No Hx Family Neuromuscular Disorders: No Hx Family Neurologic Disorders: No Hx Family HEENT Disorders: Yes (glasses) Hx Family Autoimmune Disorders: No Medications and Allergies Aspirin [Lo-Dose Aspirin EC] 81 mg PO DAILY 06/19/17 [History] Atorvastatin Calcium [Lipitor] 40 mg PO HS 06/19/17 [History] Furosemide [Lasix] 40 mg PO DAILY 06/19/17 [History] Glimepiride [Amaryl] 2 mg PO 0800 06/19/17 [History] Methylphenidate HCl [Ritalin] 5 mg PO DAILY 06/19/17 [History] Metoprolol Tartrate [Lopressor] 25 mg PO BID 06/19/17 [History] Multivit-Min/FA/Lycopen/Lutein [Centrum Silver Tablet] 1 tab PO DAILY 06/19/17 [ History] SitaGLIPtin [Januvia] 100 mg PO DAILY 06/19/17 [History] Zolpidem [Ambien] 5 mg PO HS PRN 06/19/17 [History] Lactulose [Enulose] 15 - 45 ml PO DAILY 07/18/17 [History] Lisinopril [Zestril] 20 mg PO DAILY 07/18/17 [History] Spironolactone [Aldactone] 25 mg PO DAILY 07/18/17 [History] 3 Allergy/AdvReac Type Severity Reaction Status Date / Time No Known Allergies Allergy Verified 07/18/17 12:44 Review of Systems - Constitutional no chills, no fever(s) - EENT Nose, mouth and throat: no dizziness - Cardiovascular no chest pain - Respiratory no dyspnea - Gastrointestinal no nausea, no vomiting - Genitourinary Genitourinary: no flank pain, no hematuria - Musculoskeletal no back pain - Integumentary no erythema, no rash - Neurological no weakness - Psychiatric no suicidal ideation - Hematologic/Lymphatic no easy bleeding - Allergic/Immunologic no wheezing Exam Initial Vital Signs Temp Pulse Resp BP Pulse Ox 97.5 F L 56 14 116/72 98 07/18/17 11:09 07/18/17 11:09 07/18/17 11:09 07/18/17 11:09 07/18/17 11:09 - General physical appearance Present: well developed, well nourished, no distress - Eyes Absent: icteric - ENT Present: normal mucosa - Neck Present: trachea midline - Respiratory Present: normal respiratory effort - Cardiovascular Cardiovascular exam IM: RRR - Abdomen Abdomen: Present: soft Urology Results - Labs 07/20/17 05:19 07/20/17 05:19 Abnormal lab results Hgb 11.4 g/dL (11.5-15.4) L 07/20/17 05:19 MCH 27.7 pg (28.0-33.3) L 07/20/17 05:19 MCHC 31.3 g/dL (31.6-35.5) L 07/20/17 05:19 RDW 18.3 % (11.5-14.5) H 07/20/17 05:19 Plt Count 122 K/mcL (140-400) L 07/20/17 05:19 D-Dimer 1593 ng/mLFEU (0-500) H 07/18/17 11:53 BUN 47 mg/dL (7-20) H 07/20/17 05:19 Creatinine 1.57 mg/dL (0.57-1.11) H 07/20/17 05:19 Est GFR ( Amer) 38 (> 60) L 07/20/17 05:19 Est GFR (Non-Af Amer) 31 (> 60) L 07/20/17 05:19 BUN/Creatinine Ratio 30 (6-26) H 07/20/17 05:19 Glucose 111 mg/dL (70-99) H 07/20/17 05:19 POC Glucose 151 (58-89) H 07/19/17 16:35 Calculated Osmolality 305 (280-300) H 07/20/17 05:19 B-Natriuretic Peptide 4725 pg/mL (0-100) H 07/18/17 11:50 Urine Nitrite Positive (Negative) A 07/18/17 21:56 Ur Squamous Epith Cells Moderate per lpf (None-Few) H 07/18/17 21:56 Urine Bacteria Many per hpf (None-Few) H 07/18/17 21:56 Ur Culture Indicated? YES (NO) A 07/18/17 21:56 Diabetes panel 07/20/17 Range/Units 05:19 Sodium 141 (136-145) mEq/L Potassium 4.1 (3.5-4.5) mEq/L Chloride 106 (98-109) mEq/L Carbon Dioxide 28 (19-29) mEq/L BUN 47 H (7-20) mg/dL Creatinine 1.57 H (0.57-1.11) mg/dL Glucose 111 H (70-99) mg/dL Calcium 8.7 (8.6-10.8) mg/dL Calcium panel 07/20/17 Range/Units 05:19 Calcium 8.7 (8.6-10.8) mg/dL Pituitary panel 07/20/17 Range/Units 05:19 Sodium 141 (136-145) mEq/L Potassium 4.1 (3.5-4.5) mEq/L Chloride 106 (98-109) mEq/L Carbon Dioxide 28 (19-29) mEq/L BUN 47 H (7-20) mg/dL Creatinine 1.57 H (0.57-1.11) mg/dL Glucose 111 H (70-99) mg/dL Calcium 8.7 (8.6-10.8) mg/dL Adrenal panel 07/20/17 Range/Units 05:19 Sodium 141 (136-145) mEq/L Potassium 4.1 (3.5-4.5) mEq/L Chloride 106 (98-109) mEq/L Carbon Dioxide 28 (19-29) mEq/L BUN 47 H (7-20) mg/dL Creatinine 1.57 H (0.57-1.11) mg/dL Glucose 111 H (70-99) mg/dL Calcium 8.7 (8.6-10.8) mg/dL All other labs normal. - Imaging CT scan - abdomen: report reviewed, image reviewed CT scan - pelvis: report reviewed, image reviewed US - abdomen: report reviewed, image reviewed Consult Discharge Plan - Plan Referrals: Carla Julian MD [Primary Care Provider] -
[2017-07-20] MEDS: Ampicillin/Sulbactam 3,000 MG in 0.9 % Sodium Chloride 150 ML IVPB SCH (17:59)
[2017-07-21 04:02] LABS: Basophils % 0.5 %; Eosinophils # 0.1 K/mcL (0.0-0.6); Eosinophils % 2.1 %; Hematocrit 36.6 % (35.3-44.9); Hemoglobin 11.3 g/dL (11.5-15.4); Immature Granulocytes % 0.2 % (0-4); Lymphocytes # 1.1 K/mcL (0.6-4.6); Lymphocytes % 18.6 %; Mean Corpuscular HGB Conc 30.9 g/dL (31.6-35.5); Mean Corpuscular Hemoglobin 27.4 pg (28.0-33.3); Mean Corpuscular Volume 88.6 fL (83.0-100.0); Mean Platelet Volume 12.6 fL (9.4-12.4); Monocytes # 0.8 K/mcL (0.0-1.3); Monocytes % 14.5 %; Neutrophils # 3.6 K/mcL (1.6-8.9); Platelet Count 110 K/mcL (140-400); Red Blood Count 4.13 M/mcL (3.82-4.97); Red Cell Distribution Width 18.3 % (11.5-14.5); Segmented Neutrophils % 64.1 %
[2017-07-21 04:18] LABS: Calcium 8.8 mg/dL (8.6-10.8); Potassium 4.4 mEq/L (3.5-4.5)
[2017-07-21] MEDS: Ampicillin/Sulbactam 3,000 MG in 0.9 % Sodium Chloride 150 ML IVPB SCH (05:08)
--- NOTE | 2017-07-21 06:09 | Electrocardiograph Report ---
[facility] medical Test Date: 2017-07-18 Pat Name: Vivi López Department: 103 Room: 2A11 Gender: F Home Care Physical Therapist: JASBIR : 1930 Requested By: Ap Sr Order Number: [id number] Reading MD: Haroon Denson DO Measurements Intervals [place] Rate: 53 P: 77 IN: 255 QRS: -27 QRSD: 125 T: 125 QT: 464 QTc: 447 Interpretive Statements SINUS BRADYCARDIA WITH FIRST DEGREE AV BLOCK INDETERMINATE AXIS POSSIBLE ANTERIOR MYOCARDIAL INFARCTION [30 ms Q WAVE IN V3/V4, OR R < 0.2 mV IN V4], OF INDETERMINATE AGE INTERPRETATION BASED ON A DEFAULT AGE OF 40 YEARS Electronically Signed On 07-21-2017 6:07:43 EST by Haroon Denson DO
[2017-07-21] MEDS: Insulin LISPRO 300 UNITS/3 ML VIAL SQ SCH ×4 (08:08→21:24)
[2017-07-21] MEDS: Ertapenem 500 MG in Water for inj. (sterile) 10 ML IVP SCH (10:26)
--- NOTE | 2017-07-21 10:28 | Internal Med Progress Note ---
Date of Encounter: 07/21/17 Time of Encounter: 10:28 - Assessment and plan (1) Acute exacerbation of CHF (congestive heart failure) Current Visit: Yes Status: Acute Assessment and plan: Patient is improving clinically, she presented with hypoxia with associated elevated BNP to 4725. She is currently ambulating and in no form of respiratory distress. Patient noted to have sinus bradycardia Continue metoprolol 12.5mg BID, and lasix 40mg po daily, continue home dose of spironolactone Qualifiers: Congestive heart failure type: systolic Qualified Code(s): I50.23 - Acute on chronic systolic (congestive) heart failure (2) Chronic kidney disease (CKD) stage G3a/A3, moderately decreased glomerular filtration rate (GFR) between 45-59 mL/min/1.73 square meter and albuminuria creatinine ratio greater than 300 mg/g Current Visit: Yes Status: Suspected Assessment and plan: Suspected, renal USS with no obstructibe uropathy L renal mass Cr is improving, despite current dose pf lasix, continue same Avoid nephrotoxins (3) Hypoxia Current Visit: Yes Status: Resolved Assessment and plan: Resolved secondary to pulmonary edema from acute on chronic CHF exacerbation. (4) Diabetes Current Visit: Yes Status: Chronic Assessment and plan: Diet controlled at home Fingersticks acceptable for now. She had one episode of hypoglycemia in the early hours of today. Continue sliding scale only. Qualifiers: Diabetes mellitus type: type 2 Diabetes mellitus complication status: without complication Diabetes mellitus senior care insulin use: without senior care use Qualified Code(s): E11.9 - Type 2 diabetes mellitus without complications (5) UTI (urinary tract infection) Current Visit: Yes Status: Acute Assessment and plan: ESBL E.coli, resistent to cephalosporins, sensitive to cipro/levo/unasyn/ augmentin/etarpenem Due to Renal mass, patient was swithced to etapernem, Day 1. Powerglide placed and SW informed, patient will need 10-14 days treatment for complicated UTI Qualifiers: Urinary tract infection type: site unspecified Hematuria presence: with hematuria Qualified Code(s): N39.0 - Urinary tract infection, site not specified; R31.9 - Hematuria, unspecified; R31.9 - Hematuria, unspecified (6) Renal mass Current Visit: Yes Status: Acute Assessment and plan: Icidental finding of L renal mass by USS and CT Urology consulted for recommendations regarding biopsy Awaiting MRI with contrast, continue to follow - Subjective Interval history: 87 YO F, independent, lives alone, drove here to cardiac rehab and referred for admission due to hypoxia, TERRY on CKD and CHF exacerbation She has a PMH of CHFrEF Incidental finding of renal mass and CKD vs TERRY on CKD She is also growing ESBL E.coli in her urine Patient is seen and evaluated at the bedside. No new complains this morning Awaiting MRI (renal specific, to assess L renal 4X3.7 cm solid mass) Urology is following We have switched her antibiotics to Etapernem, which patient states she will prefer to receive as infusions at home. Powerglide to be placed. SW aware. She is hemodynamically stable - Constitutional Vitals: Temp Pulse Resp BP Pulse Ox 97.9 F 59 17 108/71 93 07/21/17 06:44 07/21/17 06:44 07/21/17 06:44 07/21/17 06:44 07/21/17 06:44 General appearance: Present: A&O X 3, pleasant, no acute distress - Head Head exam: Present: atraumatic, normocephalic - Eye Eye exam: Present: PERRL, conjuntiva pink, sclera anicteric Pupils: Present: PERRL - Neck Neck exam general surgery: Present: supple, trachea midline. Absent: lymphadenopathy - Respiratory Respiratory exam: Present: CTAB. Absent: accessory muscle use, rales, rhonchi, wheezes - Cardiovascular Cardiovascular exam: Present: RRR, +S1, +S2. Absent: diastolic murmur, gallop, rubs, systolic murmur - GI/Abdominal GI/Abdominal exam: Present: normal bowel sounds, soft, no peritoneal signs. Absent: distended, tenderness - Extremities Exam Extremities exam: Present: warm, radial pulses palpable and symmetrical. Absent : calf tenderness, cyanotic, pedal edema - Neurological Exam Neurological exam: Present: alert, CN II-XII intact, normal gait, oriented X3, no focal deficits. Absent: pronater drift, facial droop, speech deficit - Skin Skin exam: Present: dry, intact Internal Medicine: Result - Labs CBC & Chem 7: 07/21/17 03:18 07/21/17 03:18 Labs: Short CBC 07/21/17 Range/Units 03:18 WBC 5.6 (4.3-11.1) K/mcL Hgb 11.3 L (11.5-15.4) g/dL Hct 36.6 (35.3-44.9) % Plt Count 110 L (140-400) K/mcL Neutrophils # 3.6 (1.6-8.9) K/mcL BMP 07/21/17 03:18 Sodium 141 Potassium 4.4 Chloride 107 Carbon Dioxide 25 BUN 48 H Creatinine 1.27 H Glucose 71 Calcium 8.8 - ABG Interpretation ABG results: PT/INR, D-dimer D-Dimer 1593 ng/mLFEU (0-500) H 07/18/17 11:53 - VTE Documentation of Mechanical Device: Graduated compression elastic hosiery Consult Discharge Plan - Plan Referrals: Carla Julian MD [Primary Care Provider] - 07/29/17 10:45 am
[2017-07-21] MEDS: Spironolactone 25 MG TABLET PO SCH (10:29)
[2017-07-21] MEDS: SACUBITRIL/VALSARTAN 24/26 MG TABLET PO SCH ×2 (10:30→21:25)
[2017-07-21] MEDS: Furosemide 20 MG TABLET PO SCH (10:30)
[2017-07-21] MEDS: Methylphenidate HCl 5 MG TABLET PO SCH (10:30)
[2017-07-21] MEDS: Multivit/Ca/Min/Fe/FA 1 TAB TABLET PO SCH (10:31)
[2017-07-21] MEDS: Aspirin Enteric Coated 81 MG Tablet PO SCH (10:31)
[2017-07-22 06:07] LABS: Basophils % 0.6 %; Eosinophils # 0.1 K/mcL (0.0-0.6); Eosinophils % 2.8 %; Hematocrit 35.6 % (35.3-44.9); Hemoglobin 10.9 g/dL (11.5-15.4); Immature Granulocytes % 0.2 % (0-4); Lymphocytes % 20.9 %; Mean Corpuscular HGB Conc 30.6 g/dL (31.6-35.5); Mean Corpuscular Hemoglobin 27.2 pg (28.0-33.3); Mean Corpuscular Volume 88.8 fL (83.0-100.0); Mean Platelet Volume 12.4 fL (9.4-12.4); Monocytes # 0.7 K/mcL (0.0-1.3); Monocytes % 14.7 %; Platelet Count 107 K/mcL (140-400); Red Blood Count 4.01 M/mcL (3.82-4.97); Red Cell Distribution Width 18.3 % (11.5-14.5); Segmented Neutrophils % 60.8 %
[2017-07-22 06:25] LABS: Calcium 8.8 mg/dL (8.6-10.8); Potassium 4.2 mEq/L (3.5-4.5)
--- NOTE | 2017-07-22 09:56 | Internal Med Progress Note ---
<Arturo Sims - Last Filed: 07/22/17 09:53> Date of Encounter: 07/22/17 Time of Encounter: 09:53 - Assessment and plan (1) Acute exacerbation of CHF (congestive heart failure) Status: Acute Assessment and plan: Patient is improving clinically, she is no longer requiring oxygen therapy. She is currently ambulating and in no form of respiratory distress. Patient noted to have sinus bradycardia with heart rate in the high 50s. Continue metoprolol 12.5mg BID, and lasix 20mg po daily, continue home dose of spironolactone. Continue Entresto Qualifiers: Congestive heart failure type: systolic Qualified Code(s): I50.23 - Acute on chronic systolic (congestive) heart failure (2) Hypoxia Status: Resolved Assessment and plan: Resolved. Patient is no longer requiring oxygen therapy. Secondary to pulmonary edema from acute on chronic CHF exacerbation. (3) UTI (urinary tract infection) Status: Acute Assessment and plan: ESBL E.coli, due to Renal mass, patient was swithced to etapernem, antibiotic Day 2. Powerglide placed and SW informed, patient will need 10-14 days treatment for complicated UTI Qualifiers: Urinary tract infection type: site unspecified Hematuria presence: with hematuria Qualified Code(s): N39.0 - Urinary tract infection, site not specified; R31.9 - Hematuria, unspecified; R31.9 - Hematuria, unspecified (4) Diabetes Status: Chronic Assessment and plan: Blood sugars been under good control. Continue sliding scale insulin. Qualifiers: Diabetes mellitus type: type 2 Diabetes mellitus complication status: without complication Diabetes mellitus exterminator insulin use: without fdc use Qualified Code(s): E11.9 - Type 2 diabetes mellitus without complications (5) Chronic kidney disease (CKD) stage G3a/A3, moderately decreased glomerular filtration rate (GFR) between 45-59 mL/min/1.73 square meter and albuminuria creatinine ratio greater than 300 mg/g Status: Suspected Assessment and plan: Currently continually improving, GFR 49 today. Patient has good urine output. No evidence of obstruction or renal mass. Continue to encourage good PO intake (6) Renal mass Status: Acute Assessment and plan: Incidental finding of left renal mass by USS and CT. 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 Urology is following and we appreciate further recommendations regarding workup including possible biopsy and/or total/partial nephrectomy. - Subjective Interval history: Patient seen and examined at bedside. Patient states that her breathing feels much better. She is very anxious about the renal mass that has been discovered on this admission. Otherwise she states she feels pretty good. - Constitutional Vitals: Temp Pulse Resp BP Pulse Ox 97.4 F L 69 15 118/70 93 07/22/17 08:10 07/22/17 08:10 07/22/17 08:10 07/22/17 08:10 07/22/17 08:10 General appearance: Present: A&O X 3, pleasant, no acute distress - Respiratory Respiratory exam: Present: CTAB. Absent: rales, rhonchi, wheezes - Cardiovascular Cardiovascular exam: Present: RRR. Absent: gallop, rubs, systolic murmur - GI/Abdominal GI/Abdominal exam: Present: normal bowel sounds, soft. Absent: distended, tenderness - Extremities Exam Extremities exam: Present: pedal edema (Trace), warm. Absent: tenderness - Neurological Exam Neurological exam: Present: alert, CN II-XII intact, oriented X3, no focal deficits Internal Medicine: Result - Labs CBC & Chem 7: 07/22/17 05:54 07/22/17 05:54 Labs: Short CBC 07/22/17 Range/Units 05:54 WBC 5.0 (4.3-11.1) K/mcL Hgb 10.9 L (11.5-15.4) g/dL Hct 35.6 (35.3-44.9) % Plt Count 107 L (140-400) K/mcL Neutrophils # 3.0 (1.6-8.9) K/mcL BMP 07/22/17 05:54 Sodium 142 Potassium 4.2 Chloride 108 Carbon Dioxide 24 BUN 42 H Creatinine 1.07 Glucose 107 H Calcium 8.8 - ABG Interpretation ABG results: PT/INR, D-dimer D-Dimer 1593 ng/mLFEU (0-500) H 07/18/17 11:53 - VTE Documentation of Mechanical Device: Graduated compression elastic hosiery Consult Discharge Plan - Plan Instructions: Heart Failure (DC), Urinary Tract Infection in Women (DC) Additional Instructions: Please resume your home medications. Please come to the infusion center daily for the next 8 days for your IV antibiotic infusion. Please follow up with her PCP as scheduled. Please follow up with Dr. Galan, urology, within 1 week. Please limit your fluid intake to no more than 1.5 L daily. Please return for any new or worsening symptoms. Referrals: Carla Julian MD [Primary Care Provider] - 07/29/17 10:45 am Jimmie Galan MD [Partnered Physician] - (Within one week) Prescriptions: Ertapenem [INVanz] 500 mg IVPB DAILY #8 vial <Tam Cortes - Last Filed: 07/22/17 18:30> Date of Encounter: 07/22/17 - Constitutional Vitals: Temp Pulse Resp BP Pulse Ox 97.3 F L 56 16 143/89 93 07/22/17 12:18 07/22/17 12:18 07/22/17 12:18 07/22/17 12:18 07/22/17 12:18 Internal Medicine: Result - Labs CBC & Chem 7: 07/22/17 05:54 07/22/17 05:54 Labs: Short CBC 07/22/17 Range/Units 05:54 WBC 5.0 (4.3-11.1) K/mcL Hgb 10.9 L (11.5-15.4) g/dL Hct 35.6 (35.3-44.9) % Plt Count 107 L (140-400) K/mcL Neutrophils # 3.0 (1.6-8.9) K/mcL BMP 07/22/17 05:54 Sodium 142 Potassium 4.2 Chloride 108 Carbon Dioxide 24 BUN 42 H Creatinine 1.07 Glucose 107 H Calcium 8.8 - ABG Interpretation ABG results: PT/INR, D-dimer D-Dimer 1593 ng/mLFEU (0-500) H 07/18/17 11:53 - Attending Attestation I conducted a face to face diagnostic evaluation of this patient and my medical decision-making was reviewed with the Resident Physician, Dr. Arturo Sims. I agree with the documented findings, disposition and treatment plan as described except to the extent set forth below: Patient to complete 10 days total of IV ertapenem for complicated UTI. I discussed the case with urology. Given MRI findings she does not need a kidney biopsy. According to urology the preference would be given her age and comorbidities to observe this mass rather than surgically removed. Patient was advised to follow-up with urology outpatient.
[2017-07-22] MEDS: Insulin LISPRO 300 UNITS/3 ML VIAL SQ SCH ×2 (10:22→12:20)
--- NOTE | 2017-07-22 10:27 | Discharge Summary ---
<Arturo Sims - Last Filed: 07/22/17 10:23> Date of Encounter: 07/22/17 Time of Encounter: 10:24 - Discharge Diagnosis (1) Acute exacerbation of CHF (congestive heart failure) Priority: Primary Status: Acute Qualifiers: Congestive heart failure type: systolic Qualified Code(s): I50.23 - Acute on chronic systolic (congestive) heart failure (2) Hypoxia Priority: Primary Status: Resolved (3) UTI (urinary tract infection) Priority: Primary Status: Acute Qualifiers: Urinary tract infection type: site unspecified Hematuria presence: with hematuria Qualified Code(s): N39.0 - Urinary tract infection, site not specified; R31.9 - Hematuria, unspecified; R31.9 - Hematuria, unspecified (4) Diabetes Priority: Secondary Status: Chronic Qualifiers: Diabetes mellitus type: type 2 Diabetes mellitus complication status: without complication Diabetes mellitus mcfp insulin use: without intermediate manager use Qualified Code(s): E11.9 - Type 2 diabetes mellitus without complications (5) Chronic kidney disease (CKD) stage G3a/A3, moderately decreased glomerular filtration rate (GFR) between 45-59 mL/min/1.73 square meter and albuminuria creatinine ratio greater than 300 mg/g Priority: Secondary Status: Suspected (6) Renal mass Priority: Primary Status: Acute - Discharge Medications Prescriptions: Ertapenem [INVanz] 500 mg IVPB DAILY #8 vial Home Medications: Aspirin [Lo-Dose Aspirin EC] 81 mg PO DAILY 06/19/17 [History] Atorvastatin Calcium [Lipitor] 40 mg PO HS 06/19/17 [History] Glimepiride [Amaryl] 2 mg PO 0800 06/19/17 [History] Methylphenidate HCl [Ritalin] 5 mg PO DAILY 06/19/17 [History] Metoprolol Tartrate [Lopressor] 25 mg PO BID 06/19/17 [History] Multivit-Min/FA/Lycopen/Lutein [Centrum Silver Tablet] 1 tab PO DAILY 06/19/17 [ History] SitaGLIPtin [Januvia] 100 mg PO DAILY 06/19/17 [History] Zolpidem [Ambien] 5 mg PO HS PRN 06/19/17 [History] Lactulose [Enulose] 15 - 45 ml PO DAILY 07/18/17 [History] Lisinopril [Zestril] 20 mg PO DAILY 07/18/17 [History] Spironolactone [Aldactone] 25 mg PO DAILY 07/18/17 [History] Ertapenem [INVanz] 500 mg IVPB DAILY #8 vial 07/22/17 [Rx] Furosemide [Lasix] 20 mg PO DAILY #0 07/22/17 [Rx] Allergies/Adverse Reactions: 3 Allergy/AdvReac Type Severity Reaction Status Date / Time No Known Allergies Allergy Verified 07/18/17 12:44 Date of admission: 07/21/17 12:01 Primary care physician: Carla Julian Discharging clinician: Arturo Sims - Patient Status Disposition: Home, Self-Care Condition: Fair Overall status at discharge: patient is progressing back to baseline - Discharge Instructions Instructions: Heart Failure (DC), Urinary Tract Infection in Women (DC) Follow Up With: Carla Julian MD [Primary Care Provider] - 07/29/17 10:45 am Jimmie Galan MD [Partnered Physician] - (Within one week) Additional Instructions: Please resume your home medications. Please come to the infusion center daily for the next 8 days for your IV antibiotic infusion. Please follow up with her PCP as scheduled. Please follow up with Dr. Galan, urology, within 1 week. Please limit your fluid intake to no more than 1.5 L daily. Please return for any new or worsening symptoms. - Diet and Activity Activity: increase activity as tolerated Diet: low salt diet Interval History: Patient seen and examined at bedside. She states this was particularly today. She is anxious about this possible renal mass. She states her breathing feels much better. She denies chest pain. She is able to get up and walk around without difficulty. Hospital course: Ms. López is a 87 year old female with history of diastolic heart failure presented with shortness of breath on exertion and lower extremity edema. Patient was found to be in acute diastolic heart failure exacerbation. Patient also had TERRY. She responded well to diuresis. Patient underwent retroperitoneal ultrasound and a 4.6 cm renal mass was found incidentally. She underwent MRI with contrast that reveals a 4.6cm neoplasm within the left kidney. Urology has been consulted and has discussed surgical management with the patient, they follow-up with an outpatient. Patient was also found to have a UTI secondary to ESBL Escherichia coli. She started on ertapenem, we will complete a ten-day course of IV ertapenem. She will be discharged home in stable condition. - Time Spent with Patient Total time spent providing and/or coordinating discharge services: - Constitutional Vitals: Temp Pulse Resp BP Pulse Ox 97.4 F L 69 15 118/70 93 07/22/17 08:10 07/22/17 08:10 07/22/17 08:10 07/22/17 08:10 07/22/17 08:10 General appearance: Present: A&O X 3, pleasant, no acute distress - Respiratory Respiratory exam: Present: CTAB. Absent: rales, rhonchi, wheezes - Cardiovascular Cardiovascular exam: Present: RRR. Absent: gallop, rubs, systolic murmur - GI/Abdominal GI/Abdominal exam: Present: normal bowel sounds, soft. Absent: distended, tenderness - Extremities Exam Extremities exam: Present: pedal edema (Trace bilaterally), warm. Absent: tenderness - Neurological Exam Neurological exam: Present: alert, CN II-XII intact, oriented X3, no focal deficits - VTE Documentation of Mechanical Device: Graduated compression elastic hosiery <Tam Cortes - Last Filed: 07/22/17 18:36> Date of Encounter: 07/22/17 Date of admission: 07/21/17 12:01 Primary care physician: Carla Julian [facility] Hospital course: Ms. López is a 87 year old female - Time Spent with Patient Total time spent providing and/or coordinating discharge services: - Constitutional Vitals: Temp Pulse Resp BP Pulse Ox 97.3 F L 56 16 143/89 93 07/22/17 12:18 07/22/17 12:18 07/22/17 12:18 07/22/17 12:18 07/22/17 12:18 - Attending Attestation I conducted a face to face diagnostic evaluation of this patient and my medical decision-making was reviewed with the Resident Physician, Dr. Arturo Sims. I agree with the documented findings, disposition and treatment plan as described except to the extent set forth below: Patient is medically stable for discharge home. I instructed her to follow up closely with urology outpatient.
[2017-07-22] MEDS: Furosemide 20 MG TABLET PO SCH (10:29)
[2017-07-22] MEDS: Aspirin Enteric Coated 81 MG Tablet PO SCH (10:29)
[2017-07-22] MEDS: Spironolactone 25 MG TABLET PO SCH (10:29)
[2017-07-22] MEDS: Multivit/Ca/Min/Fe/FA 1 TAB TABLET PO SCH (10:29)
[2017-07-22] MEDS: Methylphenidate HCl 5 MG TABLET PO SCH (10:29)
[2017-07-22] MEDS: SACUBITRIL/VALSARTAN 24/26 MG TABLET PO SCH (10:29)
[2017-07-22] MEDS: Ertapenem 500 MG in Water for inj. (sterile) 10 ML IVP SCH (10:29)
[2017-07-22 12:19] VITALS: BP 143/89
== END 2017-07-22 17:50 | disposition home or self-care (01) | DRG 291 ==
LOC: EMEROO 11:07 → INTOOBSV 14:25 → 2ANU 14:25 → SUATTDRO 07-21 12:01
PROVIDERS: ADMIT Internal Medicine; ATTEND Internal Medicine